=== PATIENT | female | born 1925 | race Caucasian/White ===

== ENCOUNTER 2016-06-20 09:18 | Inpatient (IN) | payer OTHER, MEDICARE ==
[~2016-06-20] VITALS: Ht 165.1 cm; Wt 46.4 kg
[2016-06-20] VITALS (8 sets, daily range): BP systolic 121–148; BP diastolic 59–75; PULSE 74–102; RESP 16–18; TEMP 97.8–98.7; O2SAT 94–98
[~2016-06-20 09:18] MED LIST: AMLO5 PO; D31000TA PO
[2016-06-20] MEDS ORDERED: SODIUM CHLORIDE 0.9% FLUSH 5 ML FLUSH IVF PRN (09:45)
[2016-06-20 10:41] LABS: AUTOMATED NEUTROPHIL # 7.2 TH/MM3 (1.8-7.7); BASOPHIL # 0.1 TH/MM3 (0-0.2); EOSINOPHIL # 0.3 TH/MM3 (0-0.4); EOSINOPHIL % 2.3 % (0.0-4.0); HEMATOCRIT 41.2 % (35.0-46.0); HEMO FLAGS DIFF FINAL; LYMPH % 26.4 % (9.0-44.0); MEAN CELL VOLUME 83.6 FL (80.0-100.0); MEAN CORPUSCULAR HEMOGLOBIN 27.7 PG (27.0-34.0); MEAN CORPUSCULAR HGB CONC 33.2 % (32.0-36.0); MONO % 7.5 % (0.0-8.0); NEUT % 62.8 % (16.0-70.0); PLATELET COUNT 147 TH/MM3 (150-450); RED BLOOD COUNT 4.94 MIL/MM3 (4.00-5.30); RED CELL DISTRIBUTION WIDTH 14.1 % (11.6-17.2); WHITE BLOOD COUNT 11.4 TH/MM3 (4.0-11.0)
[2016-06-20 10:59] LABS: APTT (PATIENT) 24.3 SEC (24.3-30.1); PROTHROMBIN TIME - PATIENT 11.2 SEC (9.8-11.6)
[2016-06-20 11:01] LABS: ALT (GPT) 16 U/L (10-53); ANION GAP 9 MEQ/L (5-15); AST (GOT) 15 U/L (15-37); BICARBONATE 25.1 MEQ/L (21.0-32.0); BLOOD UREA NITROGEN 28 MG/DL (7-18); CHLORIDE 105 MEQ/L (98-107); GLOMERULAR FILTRATION RATE 22 ML/MIN (>89); MAGNESIUM 2.3 MG/DL (1.5-2.5); POTASSIUM 3.8 MEQ/L (3.5-5.1); SODIUM (NA) 139 MEQ/L (136-145)
[2016-06-20 11:04] LABS: ALKALINE PHOSPHATASE 87 U/L (45-117); TOTAL BILIRUBIN ADULT 0.8 MG/DL (0.2-1.0)
--- NOTE | 2016-06-20 11:30 | PD ---
HPI Chief Complaint: Fall Time Seen by Provider: 09:39 Travel History International Travel<30 days: No Contact w/Intl Traveler<30days: No Traveled to known affect area: No History of Present Illness HPI This is an 89-year-old female who was brought in by her because she's been increasingly weak and falling. This morning she was going to the bathroom when she told her thought she was in the pass out and he went to help her to the ground. He's been increasingly weaker and is currently using a cane. He's been trying to help her but he feels physically incapable to. They said [facility] came to the house earlier this week in the setting of a fall. The patient did not sustain an injury or hit her head but her doesn't feel safe with her at home anymore. He says that when his children were in town last they're looking into assisted living facilities but he thinks they probably wouldn't accept her and she probably needs a mcfp. PFSH Past Medical History Cancer: Yes (SKIN CANCER) Cardiovascular Problems: Yes High Cholesterol: Yes Diminished Hearing: Yes ([place]) Endocrine: No Genitourinary: Yes Hypertension: Yes Immune Disorder: No Musculoskeletal: No Neurologic: No Psychiatric: No Reproductive: No Respiratory: Yes Influenza Vaccination: Yes Menopausal: Yes Past Surgical History Abdominal Surgery: Yes Appendectomy: Yes Cardiac Surgery: No Cholecystectomy: Yes Ear Surgery: No Endocrine Surgery: Yes Genitourinary Surgery: Yes (BREAST LUMP REMOVED) Gynecologic Surgery: Yes Hysterectomy: Yes Oral Surgery: No Thoracic Surgery: No Tonsillectomy: Yes Other Surgery: Yes (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) Social History Alcohol Use: No Tobacco Use: No Substance Use: No Allergies-Medications (Allergen,Severity, Reaction): Coded Allergies: Darvon (Verified Allergy, Unknown, 06/20/16) Reported Meds & Prescriptions Reported Meds & Active Scripts Active Reported Vitamin D3 (Cholecalciferol) 1,000 Unit Tab 1,000 Units PO DAILY Amlodipine (Amlodipine Besylate) 10 Mg Tab 10 Mg PO DAILY Review of Systems ROS Limitations: Poor Historian Physical Exam Narrative GENERAL: Frail elderly female in no acute distress. SKIN: Dry with skin tenting.. Erythema and some breaks in the skin of the left lower extremity with some warmth. HEAD: Atraumatic. Normocephalic. EYES: Pupils equal and round. No injection or drainage. ENT: Dry mucous membranes. NECK: Trachea midline. CARDIOVASCULAR: Regular rate and rhythm. Harsh systolic murmur appreciated over the right upper sternal border. RESPIRATORY: Clear to auscultation. Breath sounds equal bilaterally. GASTROINTESTINAL: Abdomen soft, non-tender, nondistended. MUSCULOSKELETAL: Swelling of the left lower extremity NEUROLOGICAL: Oriented to person but not place or time. Moving all extremities. Data Data Last Documented VS Vital Signs Date Time Temp Pulse Resp B/P Pulse Ox O2 Delivery O2 Flow Rate FiO2 06/20/16 09:54 74 18 140/75 97 Room Air 06/20/16 09:37 98.7 Orders Electrocardiogram (06/20/16 09:43) Complete Blood Count With Diff (06/20/16 09:43) Comprehensive Metabolic Panel (06/20/16 09:43) Magnesium (Mg) (06/20/16 09:43) Prothrombin Time / Inr (Pt) (06/20/16 09:43) Act Partial Throm Time (Ptt) (06/20/16 09:43) Troponin I (06/20/16 09:43) Ecg Monitoring (06/20/16 09:43) Bilateral Bp Monitoring (06/20/16 09:43) Iv Access Insert/Monitor (06/20/16 09:43) Oximetry (06/20/16 09:43) Oxygen Administration (06/20/16 09:43) Sodium Chloride 0.9% Flush (Ns Flush) (06/20/16 09:45) Urinalysis - C+S If Indicated (06/20/16 09:43) Us Leg Venous Doppler (06/20/16 ) Diet Heart Healthy (06/20/16 Lunch) Vital Signs (Adult) IVAN.Q4H (06/20/16 12:16) Acetaminophen (Tylenol) (06/20/16 12:30) Ondansetron Inj (Zofran Inj) (06/20/16 12:30) Amlodipine (Norvasc) (06/21/16 09:00) Case Management Consult (06/20/16 ) Admit Order (Ed Use Only) (06/20/16 12:20) Heparin Infusion IVAN.Q1H (06/20/16 12:20) Heparin-D5w Inj (Heparin-D5w Inj) (06/20/16 12:30) Act Partial Throm Time (Ptt) (06/20/16 12:20) Cbc No Diff, Includes Plts (06/20/16 12:20) Cbc No Diff, Includes Plts (06/23/16 06:00) Act Partial Throm Time (Ptt) (06/20/16 19:20) Occult Blood (Hemoccult) Stool (06/20/16 12:20) Labs Laboratory Tests Test 06/20/16 06/20/16 10:15 12:00 White Blood Count 11.4 TH/MM3 Red Blood Count 4.94 MIL/MM3 Hemoglobin 13.7 GM/DL Hematocrit 41.2 % Mean Corpuscular Volume 83.6 FL Mean Corpuscular Hemoglobin 27.7 PG Mean Corpuscular Hemoglobin 33.2 % Concent Red Cell Distribution Width 14.1 % Platelet Count 147 TH/MM3 Mean Platelet Volume 9.1 FL Neutrophils (%) (Auto) 62.8 % Lymphocytes (%) (Auto) 26.4 % Monocytes (%) (Auto) 7.5 % Eosinophils (%) (Auto) 2.3 % Basophils (%) (Auto) 1.0 % Neutrophils # (Auto) 7.2 TH/MM3 Lymphocytes # (Auto) 3.0 TH/MM3 Monocytes # (Auto) 0.9 TH/MM3 Eosinophils # (Auto) 0.3 TH/MM3 Basophils # (Auto) 0.1 TH/MM3 CBC Comment DIFF FINAL Differential Comment Prothrombin Time 11.2 SEC Prothromb Time International 1.0 RATIO Ratio Activated Partial 24.3 SEC Thromboplast Time Sodium Level 139 MEQ/L Potassium Level 3.8 MEQ/L Chloride Level 105 MEQ/L Carbon Dioxide Level 25.1 MEQ/L Anion Gap 9 MEQ/L Blood Urea Nitrogen 28 MG/DL Creatinine 2.13 MG/DL Estimat Glomerular Filtration 22 ML/MIN Rate Random Glucose 102 MG/DL Calcium Level 9.5 MG/DL Magnesium Level 2.3 MG/DL Total Bilirubin 0.8 MG/DL Aspartate Amino Transf 15 U/L (AST/SGOT) Alanine Aminotransferase 16 U/L (ALT/SGPT) Alkaline Phosphatase 87 U/L Troponin I LESS THAN 0.02 NG/ML Total Protein 7.9 GM/DL Albumin 4.0 GM/DL Urine Color STRAW Urine Turbidity CLEAR Urine pH 5.0 Urine Specific [place] 1.017 Urine Protein TRACE mg/dL Urine Glucose (UA) 100 mg/dL Urine Ketones NEG mg/dL Urine Occult Blood SMALL Urine Nitrite NEG Urine Bilirubin NEGATIVE Urine Urobilinogen 0.2 MG/DL Urine Leukocyte Esterase NEGATIVE Urine WBC 0-2 /hpf Microscopic Urinalysis Comment CULT NOT INDICATED MDM Medical Decision Making Medical Screen Exam Complete: Yes Emergency Medical Condition: Yes Interpretation(s) Afebrile, mild leukocytosis Creatinine is 2 Troponin is normal Ultrasound demonstrates extensive occlusive thrombus in the left leg Differential Diagnosis Urinary tract infection, electrolyte abnormality, anemia, DVT Narrative Course This is an 89-year-old female who presents to the emergency department with increasing weakness and more frequent falls. Her reports that he simply can't take care of her anymore. On physical exam she has obvious swelling on the left lower extremity. She's a history of DVT. She is placed in a monitor and an IV was established. Labs were obtained which were reassuring. Ultrasound demonstrates an extensive occlusive thrombus. I spoke to the hospitalist. We agreed the patient would benefit from IV heparin and hematology consultation. She'll likely require rehab or mcfp placement. Physician Communication Physician Communication Discussed with Dr. Hill and Dr. Silva Diagnosis Primary Impression: Femoral neck fracture Qualified Code: S72.002A - Closed fracture of neck of left femur, initial encounter Admitting Information Admitting Physician Requests: Admit Josefa Ambriz MD Jun 20, 2016 11:30
[2016-06-20] MEDS ORDERED: VITA100018 PO (11:32)
[2016-06-20] MEDS ORDERED: AMLO10TA2 PO (11:32)
--- NOTE | 2016-06-20 11:50 | RADRPT ---
EXAM DATE/TIME: 06/20/2016 11:04 [place] COMPARISON: No previous studies available for comparison. EXTERNAL COMPARISON : [facility], US LEG, LEFT VENOUS DOPPLER, October 17, 2011 INDICATIONS : Left leg pain. MEDICAL HISTORY : Hypercholesterolemia. Hypertension. Dyspnea. Renal disease. Melanoma. SURGICAL HISTORY : Tonsillectomy. Appendectomy. Cholecystectomy. Breast lumpectomy. Melanoma removed from right ankle. ENCOUNTER: Subsequent ACUITY: 1 week PAIN SCORE: 0/10 LOCATION: Left leg. TECHNIQUE: Venous ultrasound of the leg was performed from the inguinal ligament to the proximal calf. Real-cheli e, color Doppler and spectral tracing, compression and augmentation techniques were used. FINDINGS: There is occlusive thrombus in the iliac vein extending into the popliteal vein. There is some flow i n the popliteal vein. CONCLUSION: Extensive occlusive thrombosis of the left leg. Tavon Vela MD on June 20, 2016 at 11:48 Board Certified Radiologist. This report was verified electronically.
[2016-06-20 12:15] LABS: BLOOD, URINE SMALL (NEG); GLUCOSE,URINE 100 mg/dL (NEG); KETONE, URINE NEG (NEG); NITRITE,URINE NEG (NEG)
[2016-06-20 12:16] LABS: COMMENT (UR) CULT NOT INDICATED; CULTURE IF INDICATED CULT NOT INDICATED; URINE COLOR STRAW (YELLW/STRAW); WBC, URINE 0-2 /hpf (0-5)
[2016-06-20] MEDS ORDERED: ACETAMINOPHEN 325 MG TAB PO PRN (12:30)
[2016-06-20] MEDS ORDERED: ONDANSETRON HCL 4 MG/2 ML VIAL IV PUSH PRN (12:30)
--- NOTE | 2016-06-20 13:00 | HHI.HP ---
[facility] Service [facility] [place] [facility] Primary Care Physician Luz Marina Valencia MD Admission Diagnosis dvt Diagnoses: (1) DVT (deep venous thrombosis) Diagnosis: Principal Chief Complaint: generalized weakness Travel History International Travel<30 Days: No Contact w/Intl Traveler <30 Da: No Traveled to Known Affected Are: No History of Present Illness patient is a 89 y/o female with history of DVT, dementia and hypertension who was brought to ER with generalized weakness. the patient is not a good historian and most of the information was obtained from the at the bedside. he says that she normally walks with a walker but it seems that recently she's been weaker and is ' slow' with using her walker. she didn't have any recent fall. he says that they were thinking about sending her to [facility] but he's concerned since he doesn't think that she'll be able to take care of herself. at the time of my evaluation she was resting comfortably with no distress. denies any pain. Review of Systems ROS Limitations: Poor Historian Past Family Social History Past Medical History dementia hypertension DVT Past Surgical History cholecystectomy Reported Medications norvasc vitamin D Allergies: Coded Allergies: Darvon (Verified Allergy, Unknown, 06/20/16) Active Ordered Medications Current Medications IV Flush (NS Flush) 2 ml UNSCH PRN IVF FLUSH AFTER USING IV ACCESS; Start at 09:45 Acetaminophen (Tylenol) 650 mg Q4H PRN PO FEVER/ PAIN 1-5; Start 06/20/16 at 12: 30 Ondansetron HCl (Zofran Inj) 4 mg Q8H PRN IV PUSH NAUSEA; Start 06/20/16 at 12: 30 Amlodipine Besylate 10 mg 10 mg DAILY PO ; Start 06/21/16 at 09:00 Heparin Sodium/ Dextrose (Heparin-D5W Inj) 250 ml @ 0 mls/hr TITRATE IV ; Start 06/20/16 at 12:30 Social History lives at home . no smoking or drinking. Physical Exam Vital Signs Vital Signs Date Time Temp Pulse Resp B/P Pulse Ox O2 Delivery O2 Flow Rate FiO2 06/20/16 09:54 74 18 140/75 97 Room Air 06/20/16 09:45 97 Room Air 06/20/16 09:37 98.7 84 18 140/75 98 Physical Exam GENERAL: elderly female, in no apparent distress. SKIN: erythema over the left leg HEAD: Atraumatic. Normocephalic. No temporal or scalp tenderness. EYES: Pupils equal round and reactive. Extraocular motions intact. No scleral icterus. No injection or drainage. ENT: Nose without bleeding, purulent drainage or septal hematoma. Throat without erythema, tonsillar hypertrophy or exudate. Uvula midline. Airway patent. NECK: Trachea midline. No JVD or lymphadenopathy. Supple, nontender, no meningeal signs. CARDIOVASCULAR: Regular rate and rhythm without murmurs, gallops, or rubs. RESPIRATORY: Clear to auscultation. Breath sounds equal bilaterally. No wheezes , rales, or rhonchi. GASTROINTESTINAL: Abdomen soft, non-tender, nondistended. No hepato-splenomegaly , or palpable masses. No guarding. MUSCULOSKELETAL: swollen left leg with warmth and erythema NEUROLOGICAL: Awake and alert. Cranial nerves II through XII intact. Motor and sensory grossly within normal limits. Five out of 5 muscle strength in all muscle groups. Normal speech. Laboratory Laboratory Tests Test 06/20/16 06/20/16 10:15 12:00 White Blood Count 11.4 Red Blood Count 4.94 Hemoglobin 13.7 Hematocrit 41.2 Mean Corpuscular Volume 83.6 Mean Corpuscular Hemoglobin 27.7 Mean Corpuscular Hemoglobin 33.2 Concent Red Cell Distribution Width 14.1 Platelet Count 147 Mean Platelet Volume 9.1 Neutrophils (%) (Auto) 62.8 Lymphocytes (%) (Auto) 26.4 Monocytes (%) (Auto) 7.5 Eosinophils (%) (Auto) 2.3 Basophils (%) (Auto) 1.0 Neutrophils # (Auto) 7.2 Lymphocytes # (Auto) 3.0 Monocytes # (Auto) 0.9 Eosinophils # (Auto) 0.3 Basophils # (Auto) 0.1 CBC Comment DIFF FINAL Differential Comment Prothrombin Time 11.2 Prothromb Time International 1.0 Ratio Activated Partial 24.3 Thromboplast Time Sodium Level 139 Potassium Level 3.8 Chloride Level 105 Carbon Dioxide Level 25.1 Anion Gap 9 Blood Urea Nitrogen 28 Creatinine 2.13 Estimat Glomerular Filtration 22 Rate Random Glucose 102 Calcium Level 9.5 Magnesium Level 2.3 Total Bilirubin 0.8 Aspartate Amino Transf 15 (AST/SGOT) Alanine Aminotransferase 16 (ALT/SGPT) Alkaline Phosphatase 87 Troponin I LESS THAN 0.02 Total Protein 7.9 Albumin 4.0 Urine Color STRAW Urine Turbidity CLEAR Urine pH 5.0 Urine Specific [place] 1.017 Urine Protein TRACE Urine Glucose (UA) 100 Urine Ketones NEG Urine Occult Blood SMALL Urine Nitrite NEG Urine Bilirubin NEGATIVE Urine Urobilinogen 0.2 Urine Leukocyte Esterase NEGATIVE Urine WBC 0-2 Microscopic Urinalysis Comment CULT NOT INDICATED Result Diagram: 06/20/16 1015 06/20/16 1015 Imaging Last Impressions Lower Extremity Ultrasound 06/20/16 0000 Signed Impressions: Service Date/Time: June 11:04 - CONCLUSION: Extensive occlusive thrombosis of the left leg. Tavon Vela MD Assessment and Plan Assessment and Plan A/P - DVT of the left lower extremity with history of DVT in the past started on heparin drip- will start coumadin and consult pharmacy for coumadin dosing -generalized weakness- consult PT -hypertension; resume home meds -chronic renal insufficiency/ dementia- f/u as outpatient -DNR status per my discussion with the -case management for dc planning to SNF ( this was d/w the ). Discussed Condition With ER physician, the patient and her . Physician Certification 2 Midnight Certification Type: Admission for Inpatient Services Order for Inpatient Services The services are ordered in accordance with Medicare regulations or non- Medicare payer requirements, as applicable. In the case of services not specified as inpatient-only, they are appropriately provided as inpatient services in accordance with the 2-midnight benchmark. Estimated LOS (days): 3 days is the estimated time the patient will need to remain in the hospital, assuming treatment plan goals are met and no additional complications. Post-Hospital Plan: SNF Problem Qualifiers (1) DVT (deep venous thrombosis): Ivet Nixon MD Jun 20, 2016 13:00
[2016-06-20] MEDS: HEPARIN-D5W INJ 250 ML IV SCH (14:56)
[2016-06-20] MEDS: WARFARIN SOD 5 MG TAB PO SCH (18:26)
[2016-06-20 21:50] LABS: APTT (PATIENT) 61.4 SEC (24.3-30.1)
[2016-06-20] MEDS: diphenhydrAMINE HCL 25 MG CAP PO PRN (22:23)
[2016-06-21 04:21] VITALS: BP 134/63; PULSE 71; RESP 17; TEMP 97.3; O2SAT 97
[2016-06-21 05:47] LABS: INTERNATIONAL NORMALIZED RATIO 1.1 RATIO; PROTHROMBIN TIME - PATIENT 12.2 SEC (9.8-11.6)
[2016-06-21 05:52] LABS: APTT (PATIENT) 111.5 SEC (24.3-30.1)
--- NOTE | 2016-06-21 06:46 | EKG ---
Date Performed: 06/20/2016 Time Performed: 10:12:44 PTAGE: 89 years EKG: Sinus rhythm POSSIBLE LEFT ATRIAL ENLARGEMENT NONSPECIFIC T-WAVE ABNORMALITY ABNORMAL ECG PREVIOUS TRACING : 10/29/2014 11.24 Compared to prior tracing no significant change DOCTOR: Medardo Bruce Interpretating Date/Time 06/21/2016 06:43:31
[2016-06-21 08:00] VITALS: BP 137/55; PULSE 75; RESP 17; TEMP 97.7; O2SAT 97
--- NOTE | 2016-06-21 08:13 | HHI.PR ---
Subjective Remarks resting comfortably with no distress. looks comfortable. no fever. Objective Vitals Vital Signs Date Time Temp Pulse Resp B/P Pulse Ox O2 Delivery O2 Flow Rate FiO2 06/21/16 04:21 97.3 71 17 134/63 97 06/20/16 23:15 97.8 97 18 129/61 94 06/20/16 21:26 97.9 102 18 148/68 97 06/20/16 21:05 74 20 142/64 95 06/20/16 19:34 95 18 128/63 97 Room Air 06/20/16 18:28 79 18 121/59 98 06/20/16 14:05 76 16 125/62 98 Room Air 06/20/16 09:54 74 18 140/75 97 Room Air 06/20/16 09:45 97 Room Air 06/20/16 09:37 98.7 84 18 140/75 98 I/O 06/20/16 06/20/16 06/20/16 06/21/16 06/21/16 06/21/16 07:00 15:00 23:00 07:00 15:00 23:00 Intake Total 182 ml 312 ml Balance 182 ml 312 ml Intake Oral 120 ml 240 ml IV Total 62 ml 72 ml # Voids 2 # Bowel Movements 0 Result Diagram: 06/20/16 1015 06/20/16 1015 Imaging Last Impressions Lower Extremity Ultrasound 06/20/16 0000 Signed Impressions: Service Date/Time: June 11:04 - CONCLUSION: Extensive occlusive thrombosis of the left leg. Tavon Vela MD Objective Remarks GENERAL: This is a well-nourished, well-developed patient, in no apparent distress. CARDIOVASCULAR: Regular rate and regular rhythm without murmurs, gallops, or rubs. RESPIRATORY: Clear to auscultation. Breath sounds equal bilaterally. No wheezes , rales, or rhonchi. GASTROINTESTINAL: Abdomen soft, non-tender, nondistended. Normal, active bowel sounds MUSCULOSKELETAL: erythema and edema of the left leg NEURO: awake and alert Procedures none Medications and IVs Current Medications IV Flush (NS Flush) 2 ml UNSCH PRN IVF FLUSH AFTER USING IV ACCESS; Start at 09:45 Acetaminophen (Tylenol) 650 mg Q4H PRN PO FEVER/ PAIN 1-5; Start 06/20/16 at 12: 30 Ondansetron HCl (Zofran Inj) 4 mg Q8H PRN IV PUSH NAUSEA; Start 06/20/16 at 12: 30 Amlodipine Besylate 10 mg 10 mg DAILY PO ; Start 06/21/16 at 09:00 Heparin Sodium/ Dextrose (Heparin-D5W Inj) 250 ml @ 0 mls/hr TITRATE IV Last administered on 06/20/16 14:56; Start 06/20/16 at 12:30 Warfarin Sodium 5 mg 5 mg DAILY@1600 PO Last administered on 06/20/16 18:26; Start 06/20/16 at 16:00 Pharmacy Profile Note (Coumadin Consult Pharmacy) 0 ml @ 0 mls/hr UNSCH OTHER ; Start 06/20/16 at 13:00 Diphenhydramine HCl (Benadryl) 25 mg HS PRN PO INSOMNIA Last administered on 22:23; Start 06/20/16 at 13:00 Patient Medication Teaching (Coumadin Booklet) 1 ONCE ONCE XX Last administered on 06/20/16 16:00; Start 06/20/16 at 16:00; Stop 06/20/16 at 16:01; Status DC A/P Assessment and Plan A/P - DVT of the left lower extremity with history of DVT in the past started on heparin drip- will start coumadin and consult pharmacy for coumadin dosing dc heparin when INR >2. of note this was d/w the patient's and he's willing to proceed with coumadin since the patient was on coumadin therapy in the past. -generalized weakness- consulted PT -hypertension; resumed home meds -chronic renal insufficiency/ dementia- f/u as outpatient -DNR status per my discussion with the -case management for dc planning to SNF ( this was previously d/w the ). Discharge Planning dc planning to SNF- when INR is therapeutic. Ivet Nixon MD Jun 21, 2016 08:13
[2016-06-21 10:03] LABS: APTT (PATIENT) 68.9 SEC (24.3-30.1)
[2016-06-21 12:00] VITALS: BP 131/52; PULSE 74; RESP 18; TEMP 97.3; O2SAT 95
[2016-06-21 16:00] VITALS: BP 139/56; PULSE 78; RESP 18; TEMP 97.9; O2SAT 97
[2016-06-21] MEDS: WARFARIN SOD 5 MG TAB PO SCH (16:16)
[2016-06-21 18:16] LABS: APTT (PATIENT) 50.9 SEC (24.3-30.1)
[2016-06-21] MEDS: diphenhydrAMINE HCL 25 MG CAP PO PRN (19:49)
[2016-06-21 20:00] VITALS: BP 144/61; PULSE 81; RESP 18; TEMP 98.1; O2SAT 97
[2016-06-22 00:24] VITALS: BP 122/51; PULSE 72; RESP 16; TEMP 98; O2SAT 98
[2016-06-22 02:10] LABS: APTT (PATIENT) 57.6 SEC (24.3-30.1)
[2016-06-22] MEDS: HEPARIN-D5W INJ 250 ML IV SCH (02:22)
[2016-06-22 07:07] LABS: INTERNATIONAL NORMALIZED RATIO 1.5 RATIO; PROTHROMBIN TIME - PATIENT 16.4 SEC (9.8-11.6)
[2016-06-22 07:21] LABS: BICARBONATE 24.6 MEQ/L (21.0-32.0); POTASSIUM 3.8 MEQ/L (3.5-5.1)
[2016-06-22 08:14] VITALS: BP 131/64; PULSE 72; RESP 16; TEMP 97; O2SAT 96
--- NOTE | 2016-06-22 10:43 | HHI.PR ---
Subjective Remarks in no acute distress. has some pain to the left leg. no other complaints. Objective Vitals Vital Signs Date Time Temp Pulse Resp B/P Pulse Ox O2 Delivery O2 Flow Rate FiO2 06/22/16 08:14 97.0 72 16 131/64 96 06/22/16 00:24 98.0 72 16 122/51 98 06/21/16 20:00 98.1 81 18 144/61 97 06/21/16 16:00 97.9 78 18 139/56 97 06/21/16 12:00 97.3 74 18 131/52 95 I/O 06/21/16 06/21/16 06/21/16 06/22/16 06/22/16 06/22/16 07:00 15:00 23:00 07:00 15:00 23:00 Intake Total 312 ml 908 ml 288 ml Balance 312 ml 908 ml 288 ml Intake Oral 240 ml 860 ml 240 ml IV Total 72 ml 48 ml 48 ml # Voids 2 2 2 # Bowel Movements 0 0 0 Result Diagram: 06/20/16 1015 06/22/16 0613 Imaging Last Impressions Lower Extremity Ultrasound 06/20/16 0000 Signed Impressions: Service Date/Time: June 11:04 - CONCLUSION: Extensive occlusive thrombosis of the left leg. Tavon Vela MD Objective Remarks GENERAL: This is a well-nourished, well-developed patient, in no apparent distress. CARDIOVASCULAR: Regular rate and regular rhythm without murmurs, gallops, or rubs. RESPIRATORY: Clear to auscultation. Breath sounds equal bilaterally. No wheezes , rales, or rhonchi. GASTROINTESTINAL: Abdomen soft, non-tender, nondistended. Normal, active bowel sounds MUSCULOSKELETAL: erythema and edema of the left leg NEURO: awake and alert Procedures none Medications and IVs Current Medications IV Flush (NS Flush) 2 ml UNSCH PRN IVF FLUSH AFTER USING IV ACCESS; Start at 09:45 Acetaminophen (Tylenol) 650 mg Q4H PRN PO FEVER/ PAIN 1-5; Start 06/20/16 at 12: 30 Ondansetron HCl (Zofran Inj) 4 mg Q8H PRN IV PUSH NAUSEA; Start 06/20/16 at 12: 30 Amlodipine Besylate 10 mg 10 mg DAILY PO Last administered on 06/22/16 09:32; Start 06/21/16 at 09:00 Heparin Sodium/ Dextrose (Heparin-D5W Inj) 250 ml @ 0 mls/hr TITRATE IV Last administered on 06/22/16 02:22; Start 06/20/16 at 12:30 Warfarin Sodium 5 mg 5 mg DAILY@1600 PO Last administered on 06/21/16 16:16; Start 06/20/16 at 16:00 Pharmacy Profile Note (Coumadin Consult Pharmacy) 0 ml @ 0 mls/hr UNSCH OTHER ; Start 06/20/16 at 13:00 Diphenhydramine HCl (Benadryl) 25 mg HS PRN PO INSOMNIA Last administered on 19:49; Start 06/20/16 at 13:00 Patient Medication Teaching (Coumadin Booklet) 1 ONCE ONCE XX Last administered on 06/20/16 16:00; Start 06/20/16 at 16:00; Stop 06/20/16 at 16:01; Status DC A/P Assessment and Plan A/P - DVT of the left lower extremity with history of DVT in the past started on heparin drip- continue coumadin and consulted pharmacy for coumadin dosing dc heparin when INR >2. of note this was d/w the patient's and he's willing to proceed with coumadin since the patient was on coumadin therapy in the past. -generalized weakness- consulted PT -hypertension; resumed home meds -chronic renal insufficiency/ dementia-stable- f/u as outpatient -DNR status per my discussion with the -case management for dc planning to SNF ( this was previously d/w the ). Discharge Planning dc planning to SNF- when INR is therapeutic. Ivet Nixon MD Jun 22, 2016 10:43
[2016-06-22] MEDS ORDERED: ACETAMINOPHEN/HYDROcodone 325 MG/5 MG TAB PO PRN (10:45)
[2016-06-22] MEDS ORDERED: NORC5TAB PO (10:45)
[2016-06-22 12:46] VITALS: BP 130/63; PULSE 72; RESP 16; TEMP 97.9; O2SAT 94
[2016-06-22] MEDS: WARFARIN SOD 5 MG TAB PO SCH (15:45)
[2016-06-22 16:00] VITALS: BP 121/56; PULSE 74; RESP 16; TEMP 98.5; O2SAT 97
[2016-06-22 20:07] VITALS: BP 133/62; PULSE 77; RESP 16; TEMP 98.5; O2SAT 98
[2016-06-23 00:16] VITALS: BP 133/60; PULSE 69; RESP 17; TEMP 97.9; O2SAT 95
[2016-06-23 04:08] VITALS: BP 123/57; PULSE 65; RESP 16; TEMP 97.4; O2SAT 96
[2016-06-23 07:34] VITALS: BP 128/59; PULSE 68; RESP 16; TEMP 97.8; O2SAT 94
[2016-06-23 08:01] LABS: HEMATOCRIT 34.2 % (35.0-46.0); MEAN CELL VOLUME 82.8 FL (80.0-100.0); MEAN CORPUSCULAR HEMOGLOBIN 28.1 PG (27.0-34.0); MEAN CORPUSCULAR HGB CONC 33.9 % (32.0-36.0); PLATELET COUNT 164 TH/MM3 (150-450); RED BLOOD COUNT 4.13 MIL/MM3 (4.00-5.30); REVIEW FLAG FINAL; WHITE BLOOD COUNT 9.1 TH/MM3 (4.0-11.0)
[2016-06-23 08:12] LABS: INTERNATIONAL NORMALIZED RATIO 2.5 RATIO; PROTHROMBIN TIME - PATIENT 28.8 SEC (9.8-11.6)
--- NOTE | 2016-06-23 09:13 | HHI.PR ---
Subjective Remarks resting comfortably with no distress. no fever. d/w the RN and no acute issues over night. Objective Vitals Vital Signs Date Time Temp Pulse Resp B/P Pulse Ox O2 Delivery O2 Flow Rate FiO2 06/23/16 04:08 97.4 65 16 123/57 96 06/23/16 00:16 97.9 69 17 133/60 95 06/22/16 20:07 98.5 77 16 133/62 98 06/22/16 16:00 98.5 74 16 121/56 97 06/22/16 12:46 97.9 72 16 130/63 94 I/O 06/22/16 06/22/16 06/22/16 06/23/16 06/23/16 06/23/16 07:00 15:00 23:00 07:00 15:00 23:00 Intake Total 288 ml 480 ml 408 ml 288 ml Balance 288 ml 480 ml 408 ml 288 ml Intake Oral 240 ml 480 ml 360 ml 240 ml IV Total 48 ml 48 ml 48 ml # Voids 2 3 1 1 # Bowel Movements 0 0 0 Result Diagram: 06/23/16 0629 06/22/16 0613 Imaging Last Impressions Lower Extremity Ultrasound 06/20/16 0000 Signed Impressions: Service Date/Time: June 11:04 - CONCLUSION: Extensive occlusive thrombosis of the left leg. Tavon Vela MD Objective Remarks GENERAL: This is a well-nourished, well-developed patient, in no apparent distress. CARDIOVASCULAR: Regular rate and regular rhythm without murmurs, gallops, or rubs. RESPIRATORY: Clear to auscultation. Breath sounds equal bilaterally. No wheezes , rales, or rhonchi. GASTROINTESTINAL: Abdomen soft, non-tender, nondistended. Normal, active bowel sounds MUSCULOSKELETAL: erythema and edema of the left leg NEURO: awake and alert Procedures none Medications and IVs Current Medications IV Flush (NS Flush) 2 ml UNSCH PRN IVF FLUSH AFTER USING IV ACCESS; Start at 09:45 Acetaminophen (Tylenol) 650 mg Q4H PRN PO FEVER/ PAIN 1-5; Start 06/20/16 at 12: 30 Ondansetron HCl (Zofran Inj) 4 mg Q8H PRN IV PUSH NAUSEA; Start 06/20/16 at 12: 30 Amlodipine Besylate 10 mg 10 mg DAILY PO Last administered on 06/22/16 09:32; Start 06/21/16 at 09:00 Heparin Sodium/ Dextrose (Heparin-D5W Inj) 250 ml @ 0 mls/hr TITRATE IV Last administered on 06/22/16 02:22; Start 06/20/16 at 12:30 Warfarin Sodium 5 mg 5 mg DAILY@1600 PO Last administered on 06/22/16 15:45; Start 06/20/16 at 16:00 Pharmacy Profile Note (Coumadin Consult Pharmacy) 0 ml @ 0 mls/hr UNSCH OTHER ; Start 06/20/16 at 13:00 Diphenhydramine HCl (Benadryl) 25 mg HS PRN PO INSOMNIA Last administered on 19:49; Start 06/20/16 at 13:00 Patient Medication Teaching (Coumadin Booklet) 1 ONCE ONCE XX Last administered on 06/20/16 16:00; Start 06/20/16 at 16:00; Stop 06/20/16 at 16:01; Status DC Acetaminophen/ Hydrocodone Bitart ([place] 5-325 Mg) 1 tab Q6H PRN PO PAIN >5; Start 06/22/16 at 10:45 A/P Assessment and Plan A/P - DVT of the left lower extremity with history of DVT in the past INR is therpeutic- will dc heparin drip and continue coumadin. of note this was d/w the patient's and he's willing to proceed with coumadin since the patient was on coumadin therapy in the past. -generalized weakness- consulted PT -hypertension; resumed home meds -chronic renal insufficiency/ dementia-stable- f/u as outpatient -DNR status per my discussion with the -case management for dc planning to SNF ( this was previously d/w the ). Discharge Planning dc to SNF when arrangements made. f/u; PCP. PT/INR monitoring as outpatient. Ivet Nixon MD Jun 23, 2016 09:12
[2016-06-23] MEDS ORDERED: COUM3TAB PO (09:14)
--- NOTE | 2016-06-23 09:15 | HHI.DCPOC ---
Discharge Care Plan Diagnosis: (1) DVT (deep venous thrombosis) Additional Problems blood clot in the leg. Goals to Promote Your Health * To prevent worsening of your condition and complications * To maintain your health at the optimal level Directions to Meet Your Goals Take your medications as prescribed Follow your dietary instruction Follow activity as directed Keep your appointments as scheduled Take your immunizations and boosters as scheduled If your symptoms worsen call your PCP, if no PCP go to Urgent Care Center or Emergency Room Smoking is Dangerous to Your Health. Avoid second hand smoke Call the 24-hour hour crisis hotline for domestic abuse at Ivet Nixon MD Jun 23, 2016 09:15
--- NOTE | 2016-06-23 09:15 | HHI.DS ---
Discharge Summary Admission Date Jun 20, 2016 at 12:22 Discharge Date: Jun 23, 2016 Admitting Diagnosis dvt (1) DVT (deep venous thrombosis) ICD Code: I82.409 Diagnosis: Principal Procedures none Brief History - From Admission patient is a 89 y/o female with history of DVT, dementia and hypertension who was brought to ER with generalized weakness. the patient is not a good historian and most of the information was obtained from the at the bedside. he says that she normally walks with a walker but it seems that recently she's been weaker and is ' slow' with using her walker. she didn't have any recent fall. he says that they were thinking about sending her to [facility] but he's concerned since he doesn't think that she'll be able to take care of herself. at the time of my evaluation she was resting comfortably with no distress. denies any pain. CBC/BMP: 06/23/16 0629 06/22/16 0613 Significant Findings Laboratory Tests Test 06/20/16 06/20/16 06/20/16 06/21/16 10:15 12:00 20:53 04:21 White Blood Count 11.4 TH/MM3 (4.0-11.0) Platelet Count 147 TH/MM3 (150-450) Blood Urea Nitrogen 28 MG/DL (7-18) Creatinine 2.13 MG/DL (0.50-1.00) Estimat Glomerular Filtration 22 ML/MIN (>89) Rate Troponin I LESS THAN 0.02 NG/ML (0.02-0.05) Urine Glucose (UA) 100 mg/dL (NEG) Urine Occult Blood SMALL (NEG) Activated Partial 61.4 SEC 111.5 SEC Thromboplast Time (24.3-30.1) (24.3-30.1) Prothrombin Time 12.2 SEC (9.8-11.6) Test 06/21/16 06/21/16 06/22/16 06/22/16 09:36 17:20 01:29 06:13 Activated Partial 68.9 SEC 50.9 SEC 57.6 SEC Thromboplast Time (24.3-30.1) (24.3-30.1) (24.3-30.1) Prothrombin Time 16.4 SEC (9.8-11.6) Chloride Level 108 MEQ/L (98-107) Blood Urea Nitrogen 27 MG/DL (7-18) Creatinine 1.62 MG/DL (0.50-1.00) Estimat Glomerular Filtration 30 ML/MIN (>89) Rate Calcium Level 8.3 MG/DL (8.5-10.1) Test 06/23/16 06:29 Hematocrit 34.2 % (35.0-46.0) Prothrombin Time 28.8 SEC (9.8-11.6) Imaging Last Impressions Lower Extremity Ultrasound 06/20/16 0000 Signed Impressions: Service Date/Time: June 11:04 - CONCLUSION: Extensive occlusive thrombosis of the left leg. Tavon Vela MD PE at Discharge GENERAL: This is a well-nourished, well-developed patient, in no apparent distress. CARDIOVASCULAR: Regular rate and regular rhythm without murmurs, gallops, or rubs. RESPIRATORY: Clear to auscultation. Breath sounds equal bilaterally. No wheezes , rales, or rhonchi. GASTROINTESTINAL: Abdomen soft, non-tender, nondistended. Normal, active bowel sounds MUSCULOSKELETAL: erythema and edema of the left leg NEURO: awake and alert Hospital Course - DVT of the left lower extremity with history of DVT in the past INR is therpeutic- will dc heparin drip and continue coumadin. of note this was d/w the patient's and he's willing to proceed with coumadin since the patient was on coumadin therapy in the past. -generalized weakness- consulted PT -hypertension; resumed home meds -chronic renal insufficiency/ dementia-stable- f/u as outpatient -DNR status per my discussion with the -case management for dc planning to SNF ( this was previously d/w the ). Pt Condition on Discharge: Fair Discharge Disposition: Discharge to SNF Discharge Time: <= 30 minutes Discharge Instructions DIET: Follow Instructions for: Heart Healthy Diet Activities you can perform: Regular-No Restrictions Follow up Referrals: PCP Follow-up New Orders: PT/INR New Medications: Hydrocodone-Acetaminophen ([place]) 5-325 mg Tab 1 TAB PO Q6H PRN PAIN #15 Ref 0 TAB Warfarin (Coumadin) 3 Mg Tab 3 MG PO DAILY Prevent Blood Clot #30 Ref 0 TAB Continued Medications: Amlodipine (Amlodipine) 10 Mg Tab 10 MG PO DAILY Blood Pressure Management #30 Ref 0 TAB Cholecalciferol (Vitamin D3) 1,000 Unit Tab 1000 UNITS PO DAILY Nutritional Supplement #1 Ref 0 BOTTLE Ivet Nixon MD Jun 23, 2016 09:15
[2016-06-23 12:30] VITALS: BP 145/64; PULSE 73; RESP 16; TEMP 98.4; O2SAT 97
== END 2016-06-23 15:05 | DRG 301 ==
LOC: NEPC 09:18 → NEDA 12:22 → NEDH 19:44 → N06A 21:25
PROVIDERS: ADMIT Internal Medicine; ATTEND Internal Medicine
DX: I82.402 Acute embolism and thrombosis of unspecified deep veins of left lower extremity (principal); F03.90 Unspecified dementia, unspecified severity, without behavioral disturbance, psychotic disturbance, mood disturbance, and anxiety; I12.9 Hypertensive chronic kidney disease with stage 1 through stage 4 chronic kidney disease, or unspecified chronic kidney disease; R53.1 Weakness; Z79.01 Long term (current) use of anticoagulants; N18.9 Chronic kidney disease, unspecified; E78.00 Pure hypercholesterolemia, unspecified; H91.90 Unspecified hearing loss, unspecified ear; R29.6 Repeated falls; Z66 Do not resuscitate; Z86.718 Personal history of other venous thrombosis and embolism; Z85.820 Personal history of malignant melanoma of skin
CPT/HCPCS: 80048; 80053; 81001; 83735; 84484; 85025; 85027; 85610; 85730; 93005; 93971; J1644

== ENCOUNTER 2016-12-05 22:49 | Emergency (ER) | payer MEDICARE, OTHER ==
[~2016-12-05] VITALS: Ht 165.1 cm; Wt 47.0 kg
[~2016-12-05 22:49] MED LIST changes: +AMLO10TA2 PO; -AMLO5 PO; +COUM3TAB PO; -D31000TA PO; +NORC5TAB PO; +VITA100018 PO
--- NOTE | 2016-12-05 22:59 | PD ---
HPI Chief Complaint: Fall Time Seen by Provider: 22:53 Travel History International Travel<30 days: No Contact w/Intl Traveler<30days: No History of Present Illness HPI The patient is 89 years old. She had a slip and fall from her wheelchair at her [facility]. She complains of left elbow pain as well as pain in the occipital scalp. EMS notes about a 2 cm hematoma there. Patient started aspirin today. Patient has a history of Alzheimer's and her baseline GCS is known to be 14 which has been observed upon her arrival. PFSH Past Medical History Cancer: Yes (SKIN CANCER) Cardiovascular Problems: Yes High Cholesterol: Yes Diminished Hearing: Yes ([place]) Endocrine: No Genitourinary: Yes Hypertension: Yes Immune Disorder: No Musculoskeletal: No Neurologic: No Psychiatric: No Reproductive: No Respiratory: Yes Menopausal: Yes Past Surgical History Abdominal Surgery: Yes Appendectomy: Yes Cardiac Surgery: No Cholecystectomy: Yes Ear Surgery: No Endocrine Surgery: Yes Genitourinary Surgery: Yes (BREAST LUMP REMOVED) Gynecologic Surgery: Yes Hysterectomy: Yes Oral Surgery: No Thoracic Surgery: No Tonsillectomy: Yes Other Surgery: Yes (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) Social History Alcohol Use: No Tobacco Use: No Substance Use: No Allergies-Medications (Allergen,Severity, Reaction): Coded Allergies: Darvon (Verified Allergy, Unknown, 12/05/16) Reported Meds & Prescriptions Reported Meds & Active Scripts Active [place] (Hydrocodone-Acetaminophen) 5-325 mg Tab 1 Tab PO Q6H PRN Reported Dexamethasone 4 Mg Tab 4 Mg PO BID Aspirin 81 (Aspirin) 81 Mg Tabdr 81 Mg PO DAILY Mirtazapine 7.5 Mg Tab 7.5 Mg PO HS Aricept (Donepezil HCl) 10 Mg Tablet 10 Mg PO HS Docusate Sodium 100 Mg Cap 100 Mg PO HS PRN Senexon (Sennosides) 8.6 Mg Tab 2 Tab PO HS Calcium (Calcium Carbonate) 600 Mg Tab 600 Mg PO BID Vitamin D3 (Cholecalciferol) 1,000 Unit Tab 1,000 Units PO DAILY Amlodipine (Amlodipine Besylate) 10 Mg Tab 10 Mg PO DAILY Review of Systems Except as stated in HPI: all other systems reviewed are Neg Physical Exam Narrative GENERAL: 8, speaking sentences 11-year-old female frail SKIN: Focused skin assessment warm/dry. HEAD: Atraumatic. Normocephalic. Approximately 3 cm cephalohematoma occipital scalp. EYES: Pupils equal and round. No scleral icterus. No injection or drainage. ENT: No nasal bleeding or discharge. Mucous membranes pink and moist. NECK: Trachea midline. No JVD. CARDIOVASCULAR: Regular rate and rhythm. No murmur appreciated. RESPIRATORY: No accessory muscle use. Clear to auscultation. Breath sounds equal bilaterally. GASTROINTESTINAL: Abdomen soft, non-tender, nondistended. Hepatic and splenic margins not palpable. MUSCULOSKELETAL: No obvious deformities. No clubbing. No cyanosis. Contusion tenderness about the region of the olecranon on the left side. Pelvis stable. NEUROLOGICAL: Awake and alert. No obvious cranial nerve deficits. Motor grossly within normal limits. Normal speech. PSYCHIATRIC: Appropriate mood and affect; insight and judgment normal. Data Data Last Documented VS Vital Signs Date Time Temp Pulse Resp B/P Pulse Ox O2 Delivery O2 Flow Rate FiO2 12/05/16 23:04 98.7 87 18 169/[address] Brain W/O Iv Contrast(Rout) (12/05/16 22:56) Elbow, Complete (4 Vws) (12/05/16 22:56) Ice/Cold Pack (12/05/16 22:56) Pelvis, Ap Only (Routine) (12/05/16 22:56) MDM Medical Decision Making Medical Screen Exam Complete: Yes Emergency Medical Condition: Yes Medical Record Reviewed: Yes Differential Diagnosis Elbow fracture, septal hematoma, intracranial hemorrhage, femur fracture, pelvis fracture Narrative Course Elbow Xray: No evidence acute fracture Pelvis x-ray: No evidence. Fracture Head CT: No intracranial hemorrhage or skull fracture The patient is resting comfortably and feels better, is alert and in no distress. The patients results and examination findings were discussed. The repeat examination is unremarkable and benign. The history, exam, diagnostic testing, and current condition do not suggest any significant pathology to warrant further testing, continued ED treatment, admission, or surgical evaluation at this point. The vital signs have been stable. The patient does not have uncontrollable pain, intractable vomiting, or other significant symptoms. The patient's condition is stable and appropriate for discharge. The patient will pursue further outpatient evaluation with a primary care physician or other designated or consulting physician as indicated in the discharge instructions. The patient expressed understanding and was agreeable with this plan. Diagnosis Primary Impression: Fall Qualified Code: W19.XXXA - Fall, initial encounter Additional Impressions: Cephalohematoma Injury of left elbow Qualified Code: S59.902A - Injury of left elbow, initial encounter Referrals: Primary Care Physician 2 days Additional Instructions: You have a choice when it comes to health care, and we are glad that you chose [facility]. Hopefully, we have met your expectations on today's visit. You are welcome to return to [facility] at any time, as we are committed to meeting the health care needs of our community. Med/Other Pt SpecificInfo: No Change to Meds Disposition: DISCHARGE HOME Condition: Stable Jourdan Rviera MD Dec 05, 2016 22:59
[2016-12-05 23:04] VITALS: BP 169/74; PULSE 87; RESP 18; TEMP 98.7; O2SAT 98
[2016-12-05] MEDS ORDERED: ASPI-110 PO (23:09)
[2016-12-05] MEDS ORDERED: MIRT1TAB PO (23:09)
[2016-12-05] MEDS ORDERED: SENE8.6T3 PO (23:09)
[2016-12-05] MEDS ORDERED: DEXA4TAB PO (23:09)
[2016-12-05] MEDS ORDERED: ARIC10TA2 PO (23:09)
[2016-12-05] MEDS ORDERED: DOCU100C PO (23:09)
[2016-12-05] MEDS ORDERED: CALC600T25 PO (23:09)
--- NOTE | 2016-12-05 23:43 | RADRPT ---
EXAM DATE/TIME: 12/05/2016 23:16 [facility] COMPARISON: No previous studies available for comparison. INDICATIONS : Pt fell from wheelchair tonight. Pain to left elbow and hip. MEDICAL HISTORY : Hypercholesterolemia. Hypertension Skin cancer, Alzheimers SURGICAL HISTORY : Hysterectomy. Appendectomy. Cholecystectomy. Tonsillectomy ENCOUNTER: Initial ACUITY: 1 day PAIN SCORE: 8/10 LOCATION: Bilateral pelvis FINDINGS: A single frontal view of the pelvis demonstrates no evidence of fracture. The bony pelvic ring is in tact. Bony mineralization is normal. The soft tissues are intact. CONCLUSION: 1. There is no evidence of acute fracture. Mario Wagner MD on December 05, 2016 at 23:41 Board Certified Radiologist. This report was verified electronically.
--- NOTE | 2016-12-05 23:44 | RADRPT ---
EXAM DATE/TIME: 12/05/2016 23:22 [facility] COMPARISON: No previous studies available for comparison. INDICATIONS : Pt fell from wheelchair tonight. Pain to left elbow and hip. MEDICAL HISTORY : Hypercholesterolemia. Hypertension Skin cancer, Alzheimers SURGICAL HISTORY : Appendectomy. Cholecystectomy. Hysterectomy. Tonsillectomy ENCOUNTER: Initial ACUITY: 1 day PAIN SCORE: 7/10 LOCATION: Left Elbow FINDINGS: Multiple view examination of the left elbow demonstrates no soft tissue swelling, joint effusion, or fracture. The osseous structures are in normal alignment. Bony mineralization is normal. CONCLUSION: 1. There is no evidence of acute fracture. Mario Wagner MD on December 05, 2016 at 23:42 Board Certified Radiologist. This report was verified electronically.
--- NOTE | 2016-12-05 23:45 | RADRPT ---
EXAM DATE/TIME: 12/05/2016 23:24 [facility] COMPARISON: CT BRAIN W/O CONTRAST, March 02, 2016, 13:43. INDICATIONS : Trauma, fall. RADIATION DOSE: 56.35 CTDIvol (mGy) MEDICAL HISTORY : Non-responsive. SURGICAL HISTORY : Non-responsive. ENCOUNTER: Initial ACUITY: 1 day PAIN SCALE: Non-responsive LOCATION: cranial TECHNIQUE: Multiple contiguous axial images were obtained of the head. Using automated exposure control and adjustment of the mA and/or kV according to patient size, radiation dose was kept as low as reasonably achievable to obtain optimal diagnostic quality images. DICOM format image data is av ailable electronically for review and comparison. FINDINGS: Noncontrast axial head CT demonstrates the ventricles to be enlarged with a prominent sulcal pattern compatible with atrophy. No acute intracranial hemorrhage, acute cortical infarction, mass or midline shift is seen. Posterior fossa structures are unremarkable. Bone windows demonstrate no abnormality. CONCLUSION: Atrophy. No evidence of acute intracranial pathology. Mario Wagner MD on December 05, 2016 at 23:43 Board Certified Radiologist. This report was verified electronically.
[2016-12-06 03:00] VITALS: BP 134/61; PULSE 70; RESP 19; O2SAT 97
[2016-12-06 06:33] VITALS: BP 139/59; PULSE 73; RESP 18; TEMP 98.1; O2SAT 97
[2016-12-06 07:35] VITALS: BP 144/70; PULSE 68; RESP 16; O2SAT 96
== END 2016-12-06 09:12 | disposition home or self-care (01) ==
LOC: NEPE 22:49 → NEPD 12-06 09:12
DX: S06.2X9A Diffuse traumatic brain injury with loss of consciousness of unspecified duration, initial encounter (principal); S59.902A Unspecified injury of left elbow, initial encounter; W05.0XXA Fall from non-moving wheelchair, initial encounter; Y92.199 Unspecified place in other specified residential institution as the place of occurrence of the external cause
CPT/HCPCS: 70450; 72170; 73080

== ENCOUNTER 2016-12-19 23:08 | Observation (INO) | payer OTHER ==
[~2016-12-19] VITALS: Ht 157.5 cm; Wt 45.0 kg
[~2016-12-19 23:08] MED LIST changes: +ARIC10TA2 PO; +ASPI-110 PO; +CALC600T25 PO; -COUM3TAB PO; +DEXA4TAB PO; +DOCU100C PO; +MIRT1TAB PO; +SENE8.6T3 PO
[2016-12-19 23:13] VITALS: BP 170/75; PULSE 84; RESP 16; TEMP 98.6; O2SAT 95
--- NOTE | 2016-12-19 23:26 | PD ---
HPI Chief Complaint: Pain: Acute or Chronic Time Seen by Provider: 23:15 Travel History International Travel<30 days: No Contact w/Intl Traveler<30days: No Traveled to known affect area: No History of Present Illness HPI This is an 89-year-old female comes from the [facility] with complaints of right sided rib pain. The patient is a poor historian and is unable to give any further history. According to the paramedics, they report that she is supposed to use a walker however she's had multiple falls. Patient denies any head pain or neck pain. She reports pointing to her right lateral rib area. She reports weakness of her left upper and lower extremity which is not new. There are no other complaints. PFSH Past Medical History Alzheimer's Disease: Yes Cancer: Yes (SKIN CANCER) Cardiovascular Problems: Yes High Cholesterol: Yes Diminished Hearing: Yes ([place]) Endocrine: No Genitourinary: Yes Hypertension: Yes Immune Disorder: No Musculoskeletal: No Neurologic: No Psychiatric: No Reproductive: No Respiratory: Yes ?: Not Menopausal: Yes Past Surgical History Abdominal Surgery: Yes Appendectomy: Yes Cardiac Surgery: No Cholecystectomy: Yes Ear Surgery: No Endocrine Surgery: Yes Genitourinary Surgery: Yes (BREAST LUMP REMOVED) Gynecologic Surgery: Yes Hysterectomy: Yes Oral Surgery: No Thoracic Surgery: No Tonsillectomy: Yes Other Surgery: Yes (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) Social History Alcohol Use: No Tobacco Use: No Substance Use: No Allergies-Medications (Allergen,Severity, Reaction): Coded Allergies: Darvon (Verified Allergy, Unknown, 12/05/16) Reported Meds & Prescriptions Reported Meds & Active Scripts Active [place] (Hydrocodone-Acetaminophen) 5-325 mg Tab 1 Tab PO Q6H PRN Reported Dexamethasone 4 Mg Tab 4 Mg PO BID Aspirin 81 (Aspirin) 81 Mg Tabdr 81 Mg PO DAILY Mirtazapine 7.5 Mg Tab 7.5 Mg PO HS Aricept (Donepezil HCl) 10 Mg Tablet 10 Mg PO HS Docusate Sodium 100 Mg Cap 100 Mg PO HS PRN Senexon (Sennosides) 8.6 Mg Tab 2 Tab PO HS Calcium (Calcium Carbonate) 600 Mg Tab 600 Mg PO BID Vitamin D3 (Cholecalciferol) 1,000 Unit Tab 1,000 Units PO DAILY Amlodipine (Amlodipine Besylate) 10 Mg Tab 10 Mg PO DAILY Review of Systems ROS Limitations: Poor Historian Except as stated in HPI: all other systems reviewed are Neg General / Constitutional: No: Fever, Chills HENT: No: Headaches, Neck Pain Cardiovascular: No: Chest Pain or Discomfort, Palpitations Respiratory: No: Cough, Shortness of Breath Gastrointestinal: No: Nausea, Vomiting, Abdominal Pain Musculoskeletal: Positive: Pain (right lateral rib) Neurologic: Positive: Weakness (left upper and lower extremity which is not new ), No: Headache Physical Exam Narrative GENERAL: Well-nourished, well-developed patient, in no acute respiratory distress.. SKIN: Focused skin assessment warm/dry. HEAD: Normocephalic/atraumatic. EYES: No scleral icterus. No injection or drainage. NECK: Supple, trachea midline. No JVD or lymphadenopathy. CARDIOVASCULAR: Regular rate and rhythm without murmurs, gallops, or rubs. RESPIRATORY: Breath sounds equal bilaterally. No accessory muscle use. On palpation of the patient's right lateral ribs, there is tenderness to palpation. There is no obvious ecchymosis or bruising. There is no step-offs. GASTROINTESTINAL: Abdomen soft, non-tender, nondistended. No pulsatile masses. MUSCULOSKELETAL: No cyanosis, or edema. BACK: Nontender without obvious deformity. No CVA tenderness. NEUROLOGICAL: Awake and confused. Cranial nerves II through XII intact. Patient has mild contractures of her left upper extremity. Data Data Last Documented VS Vital Signs Date Time Temp Pulse Resp B/P Pulse Ox O2 Delivery O2 Flow Rate FiO2 12/20/16 04:32 83 16 127/60 94 Room Air 12/19/16 23:13 98.6 Orders Ribs, Uni (W/Exp Cxr-Min 3vw) (12/19/16 23:15) Complete Blood Count With Diff (12/20/16 00:41) Basic Metabolic Panel (Bmp) (12/20/16 00:41) Ct Abd/Pel W Iv Contrast(Rout) (12/20/16 00:41) Iodixanol 320 Inj (Rad Ct) (Visipaque 32 (12/20/16 02:03) Sodium Chlor 0.9% 1000 Ml Inj (Ns 1000 M (12/20/16 03:30) Urinalysis - C+S If Indicated (12/20/16 05:15) Labs Laboratory Tests Test 12/20/16 00:45 White Blood Count 17.8 TH/MM3 Red Blood Count 4.34 MIL/MM3 Hemoglobin 12.1 GM/DL Hematocrit 36.8 % Mean Corpuscular Volume 84.7 FL Mean Corpuscular Hemoglobin 28.0 PG Mean Corpuscular Hemoglobin 33.0 % Concent Red Cell Distribution Width 14.2 % Platelet Count 203 TH/MM3 Mean Platelet Volume 8.1 FL Neutrophils (%) (Auto) 78.4 % Lymphocytes (%) (Auto) 14.7 % Monocytes (%) (Auto) 5.5 % Eosinophils (%) (Auto) 0.7 % Basophils (%) (Auto) 0.7 % Neutrophils # (Auto) 14.0 TH/MM3 Lymphocytes # (Auto) 2.6 TH/MM3 Monocytes # (Auto) 1.0 TH/MM3 Eosinophils # (Auto) 0.1 TH/MM3 Basophils # (Auto) 0.1 TH/MM3 CBC Comment DIFF FINAL Differential Comment Sodium Level 142 MEQ/L Potassium Level 3.9 MEQ/L Chloride Level 105 MEQ/L Carbon Dioxide Level 28.4 MEQ/L Anion Gap 9 MEQ/L Blood Urea Nitrogen 49 MG/DL Creatinine 1.38 MG/DL Estimat Glomerular Filtration 36 ML/MIN Rate Random Glucose 110 MG/DL Calcium Level 8.9 MG/DL MDM Medical Decision Making Medical Screen Exam Complete: Yes Emergency Medical Condition: Yes Differential Diagnosis Right sided rib contusion versus fracture versus pneumothorax versus pneumonia Narrative Course 89-year-old female presents from the [facility] with right sided rib pain. The patient has right sided eighth ninth and 10th rib fractures. She also noted to be severely dehydrated. Given this, I will recommend bringing the patient in Friday hydration. She also could benefit from a case management consult for possible [facility] facility placement. Diagnosis Primary Impression: right eighth, ninth, 10th rib fracture. Additional Impressions: Acute kidney injury Leukocytosis Disposition: 01 DISCHARGE HOME Condition: Stable Sonido Torres MD Dec 19, 2016 23:26
[2016-12-20] VITALS (8 sets, daily range): BP systolic 127–164; BP diastolic 60–71; PULSE 60–83; RESP 16–20; TEMP 96.5–98.3; O2SAT 93–96
--- NOTE | 2016-12-20 00:05 | RADRPT ---
EXAM DATE/TIME: 12/19/2016 23:35 [facility] COMPARISON: CHEST SINGLE AP, October 29, 2014, 11:30. INDICATIONS : Patient complains of right sided rib pain after fall. MEDICAL HISTORY : None. SURGICAL HISTORY : None. ENCOUNTER: Initial ACUITY: 2 days PAIN SCORE: Non-responsive. LOCATION: Right Ribs FINDINGS: The cardiac silhouette is enlarged in transverse diameter. There is heavy calcification of the mitral valve annulus. There is no evidence of pneumothorax. There are fractures of the anterior right 89 and 10th ribs. Osseous structures are osteopenic. CONCLUSION: 1. Fracture right eighth ninth and 10th ribs Mario Wagner MD on December 20, 2016 at 0:02 Board Certified Radiologist. This report was verified electronically.
[2016-12-20 01:13] LABS: BASOPHIL # 0.1 TH/MM3 (0-0.2); BASOPHIL % 0.7 % (0.0-2.0); EOSINOPHIL # 0.1 TH/MM3 (0-0.4); EOSINOPHIL % 0.7 % (0.0-4.0); HEMATOCRIT 36.8 % (35.0-46.0); HEMO FLAGS DIFF FINAL; LYMPH % 14.7 % (9.0-44.0); LYMPHOCYTE # 2.6 TH/MM3 (1.0-4.8); MEAN CELL VOLUME 84.7 FL (80.0-100.0); MONO % 5.5 % (0.0-8.0); NEUT % 78.4 % (16.0-70.0); PLATELET COUNT 203 TH/MM3 (150-450); RED BLOOD COUNT 4.34 MIL/MM3 (4.00-5.30); RED CELL DISTRIBUTION WIDTH 14.2 % (11.6-17.2); WHITE BLOOD COUNT 17.8 TH/MM3 (4.0-11.0)
[2016-12-20 01:44] LABS: BICARBONATE 28.4 MEQ/L (21.0-32.0); POTASSIUM 3.9 MEQ/L (3.5-5.1)
[2016-12-20] MEDS ORDERED: IODIXANOL 320 MG/ML 10 ML VIAL (for Rad CT) IV ONE (02:03)
--- NOTE | 2016-12-20 02:18 | RADRPT ---
EXAM DATE/TIME: 12/20/2016 01:56 [facility] COMPARISON: No previous studies available for comparison. INDICATIONS : Right upper quadrant pain post fall. Positive rib radiographs, evaluate liver. IV CONTRAST: 50 cc Visipaque (iodixanol) IV ORAL CONTRAST: No oral contrast ingested. RADIATION DOSE: 6.64 CTDIvol (mGy) MEDICAL HISTORY : Hypertension. SURGICAL HISTORY : Hysterectomy. Cholecystectomy. ENCOUNTER: Initial ACUITY: 1 day PAIN SCALE: 9/10 LOCATION: Right upper quadrant TECHNIQUE: Volumetric scanning of the abdomen and pelvis was performed. Using automated exposure control and ad justment of the mA and/or kV according to patient size, radiation dose was kept as low as reasonably achievable to obtain optimal diagnostic quality images. DICOM format image data is available electro nically for review and comparison. FINDINGS: There is subsegmental atelectasis in the both bases. The liver and spleen are normal in size and no focal defects are identified. The gallbladder is absent. The pancreas demonstrates normal contour wit hout evidence of mass or ductal dilatation. The adrenal glands and kidneys appear normal bilaterally. No hydronephrosis or mass lesions are identified. No free fluid is identified. Examination of the pelvis demonstrates no evidence of free fluid or pelvic mass. No abnormally enlarg ed inguinal or retroperitoneal lymph nodes are present. The bladder is unremarkable. There is mild no nspecific thickening of the wall of the rectum. Multiple hemangiomas are present in the lumbar spine. CONCLUSION: 1. No evidence of acute abdominal or pelvic process. No masses are identified. 2. Bibasilar atelectasis Mario Wagner MD on December 20, 2016 at 2:13 Board Certified Radiologist. This report was verified electronically.
[2016-12-20] MEDS ORDERED: SODIUM CHLOR 0.9% 1000 ML INJ 1,000 ML IV SCH (03:30)
[2016-12-20] MEDS ORDERED: ACETAMINOPHEN/HYDROcodone 325 MG/5 MG TAB PO PRN (05:30)
[2016-12-20] MEDS ORDERED: LACTULOSE SYRUP 20 GM/30 ML CUP PO PRN (05:30)
[2016-12-20] MEDS ORDERED: BISACODYL 10 MG SUPP RECTAL PRN (05:30)
[2016-12-20] MEDS ORDERED: ACETAMINOPHEN/HYDROcodone 325 MG/7.5 MG TAB PO PRN (05:30)
[2016-12-20] MEDS ORDERED: MAGNESIUM HYDROXIDE SUSP 30 ML CUP PO PRN (05:30)
[2016-12-20] MEDS ORDERED: SODIUM CHLORIDE 0.9% FLUSH 10 ML FLUSH IV FLUSH PRN (05:30)
[2016-12-20] MEDS ORDERED: LIDOCAINE HCL 5% PATCH T-DERMAL PRN (05:30)
[2016-12-20] MEDS ORDERED: ONDANSETRON HCL 4 MG/2 ML VIAL IVP PRN (05:30)
[2016-12-20] MEDS ORDERED: SENNOSIDES 8.6 MG TAB PO PRN (05:30)
[2016-12-20] MEDS ORDERED: ACETAMINOPHEN 325 MG TAB PO PRN (05:30)
[2016-12-20] MEDS: SODIUM CHLOR 0.9% 1000 ML INJ 1,000 ML IV SCH ×2 (05:58→08:42)
[2016-12-20] MEDS ORDERED: DOCU100T9 PO (06:49)
[2016-12-20 07:10] LABS: BACTERIA, URINE MOD /hpf; BLOOD, URINE NEG (NEG); COMMENT (UR) CATH-CULTURE IND; CULTURE IF INDICATED CATH CULTURE IND; GLUCOSE,URINE NEG (NEG); KETONE, URINE NEG (NEG); PH, URINE 6.5 (5.0-8.5); SQUAMOUS EPITHELIAL CELL URINE 7 /hpf (0-5); URINE COLOR LIGHT-YELLOW (YELLW/STRAW)
[2016-12-20 07:12] LABS: NITRITE,URINE POS (NEG)
[2016-12-20] MEDS: SODIUM CHLORIDE 0.9% FLUSH 10 ML FLUSH IV FLUSH SCH ×2 (08:40→21:27)
[2016-12-20] MEDS ORDERED: DOCUSATE SODIUM 50 MG/SENNA 8.6 MG TAB PO SCH (09:00)
--- NOTE | 2016-12-20 14:53 | HHI.HP ---
HPI Service [facility] Primary Care Physician Luz Marina Valencia MD Admission Diagnosis right 8th, 9th,10th rib fracture, acute kidney injury, leukocytosis. Diagnoses: Chief Complaint: Right flank pain Travel History International Travel<30 Days: No Contact w/Intl Traveler <30 Da: No Traveled to Known Affected Are: No History of Present Illness Written by Dennis Malcolm, acting as scribe for Dr. Capps on 12/20/16 at 14:33. This note was transcribed by [email or web address] Lunsford. I, Dr. Greg Capps personally performed the history, physical exam, and medical decision making; and confirmed the accuracy of the information in the transcribed note. Authenticated by Dr. Greg Capps on 12/20/16 at 21:40. 89-year-old female with past mental history of dementia, CVA and left-sided weakness, dementia, HTN, chronic constipation, CKD who presented for right rib pain. The patient is seen with her at bedside improved since most of the history. History and patient is limited secondary to dementia and hard of hearing. The patient currently only complains of left elbow pain and she knows that she fell twice, but cannot say when or how she injured herself. The patient's states that he lives with the patient in the [facility]. He states that the aide for the patient to bed last night and she had no complaints when being put into bed. He states the patient woke up and was complaining of pain in her right ribs. The patient did have an ED visit for fall 2 weeks ago with essentially unremarkable workup at that time. The patient's is not really clear if the patient's had any recurrent falls or injury and is unsure how the patient could've injured her ribs. The patient has been dealing with intermittent episodes of diarrhea and constipation recently. They're unsure what medication she is on. They state that the patient has not done well with rehabilitation in the past and care from her and the staff is available 24 7 at the [facility] and they wish to return there. Review of Systems Except as stated in HPI: all other systems reviewed are Neg Past Family Social History Past Medical History Dementia DVT CVA with residual left-sided weakness Hypertension Chronic kidney disease Chronic constipation Past Surgical History Cholecystectomy Appendectomy Hysterectomy Reported Medications Docusate Sodium 100 Mg Tab 200 Mg PO BID Dexamethasone 4 Mg Tab 4 Mg PO BID Aspirin 81 (Aspirin) 81 Mg Tabdr 81 Mg PO DAILY Mirtazapine 7.5 Mg Tab 7.5 Mg PO HS Aricept (Donepezil HCl) 10 Mg Tablet 10 Mg PO HS Docusate Sodium 100 Mg Cap 100 Mg PO HS PRN Senexon (Sennosides) 8.6 Mg Tab 2 Tab PO HS Calcium (Calcium Carbonate) 600 Mg Tab 600 Mg PO BID Vitamin D3 (Cholecalciferol) 1,000 Unit Tab 1,000 Units PO DAILY Amlodipine (Amlodipine Besylate) 10 Mg Tab 10 Mg PO DAILY Allergies: Coded Allergies: Darvon (Verified Allergy, Unknown, 12/05/16) Active Ordered Medications Current Medications Medications (Trade) Dose Ordered Sig/Bren Route Start Time Stop Time Status Last Admin (Lidoderm 5% Patch.12 Hr) 1 patch DAILY PRN T-DERMAL 12/20/16 05:30 (NS Flush) 2 ml UNSCH PRN IV FLUSH 12/20/16 05:30 (NS Flush) 2 ml BID IV FLUSH 12/20/16 09:00 (Zofran Inj) 4 mg Q6H PRN IVP 12/20/16 05:30 (Tylenol) 650 mg Q6H PRN PO 12/20/16 05:30 (Wallback 5-325 Mg) 1 tab Q4H PRN PO 12/20/16 05:30 (Wallback 7.5-325 Mg) 1 tab Q4H PRN PO 12/20/16 05:30 (Milk Of Magnesia Liq) 30 ml Q12H PRN PO 12/20/16 05:30 (Senokot) 17.2 mg Q12H PRN PO 12/20/16 05:30 (Dulcolax Supp) 10 mg DAILY PRN RECTAL 12/20/16 05:30 (Lactulose Liq) 30 ml DAILY PRN PO 12/20/16 05:30 (Norvasc) 10 mg DAILY PO 12/20/16 09:00 12/20/16 08:40 (Remeron) 7.5 mg HS PO 12/20/16 21:00 Donepezil HCl 10 mg 10 mg HS PO 12/20/16 21:00 (Rocephin Inj/NS Inj) 100 ml @ 200 mls/hr Q24H IV 12/20/16 15:00 Family History Father had dementia Social History [facility] resident Denies any alcohol or tobacco use Physical Exam Vital Signs Vital Signs Date Time Temp Pulse Resp B/P Pulse Ox O2 Delivery O2 Flow Rate FiO2 12/20/16 12:35 97.9 60 18 141/64 96 12/20/16 09:03 96.5 60 20 141/64 95 12/20/16 05:58 66 18 134/63 93 Room Air 12/20/16 04:32 83 16 127/60 94 Room Air 12/20/16 02:38 74 18 128/61 94 Room Air 12/20/16 01:05 78 16 164/71 94 Room Air 12/19/16 23:13 98.6 84 16 170/75 95 Physical Exam GENERAL: Well-developed well-nourished. In no acute distress. Hard of hearing SKIN: Warm and dry. No lesions noted. HEENT: Normocephalic. Pupils equal and round. Mucous membranes pink and moist. CARDIOVASCULAR: Regular rate and rhythm. No murmur appreciated. RESPIRATORY: No accessory muscle use. Clear to auscultation. Breath sounds equal bilaterally. GASTROINTESTINAL: Abdomen soft, non-tender, nondistended. Bowel sounds x4. MUSCULOSKELETAL: No rib or chest wall pain with palpation. Mild left elbow TTP No clubbing or cyanosis. No edema. NEUROLOGICAL: Awake and alert. Left-sided weakness. Normal speech. PSYCHIATRIC: Pleasantly confused mood and affect; insight and judgment poor. Laboratory Laboratory Tests Test 12/20/16 12/20/16 00:45 06:30 White Blood Count 17.8 Red Blood Count 4.34 Hemoglobin 12.1 Hematocrit 36.8 Mean Corpuscular Volume 84.7 Mean Corpuscular Hemoglobin 28.0 Mean Corpuscular Hemoglobin 33.0 Concent Red Cell Distribution Width 14.2 Platelet Count 203 Mean Platelet Volume 8.1 Neutrophils (%) (Auto) 78.4 Lymphocytes (%) (Auto) 14.7 Monocytes (%) (Auto) 5.5 Eosinophils (%) (Auto) 0.7 Basophils (%) (Auto) 0.7 Neutrophils # (Auto) 14.0 Lymphocytes # (Auto) 2.6 Monocytes # (Auto) 1.0 Eosinophils # (Auto) 0.1 Basophils # (Auto) 0.1 CBC Comment DIFF FINAL Differential Comment Sodium Level 142 Potassium Level 3.9 Chloride Level 105 Carbon Dioxide Level 28.4 Anion Gap 9 Blood Urea Nitrogen 49 Creatinine 1.38 Estimat Glomerular Filtration 36 Rate Random Glucose 110 Calcium Level 8.9 Urine Color LIGHT-YELLOW Urine Turbidity HAZY Urine pH 6.5 Urine Specific [place] 1.031 Urine Protein TRACE Urine Glucose (UA) NEG Urine Ketones NEG Urine Occult Blood NEG Urine Nitrite POS Urine Bilirubin NEG Urine Urobilinogen LESS THAN 2.0 Urine Leukocyte Esterase LARGE Urine RBC 3 Urine WBC 35 Urine WBC Clumps MOD Urine Squamous Epithelial 7 Cells Urine Bacteria MOD Microscopic Urinalysis Comment CATH-CULTURE IND Date/Time Procedure Status Source Growth 12/20/16 06:30 Urine Culture Received Urine Catheterized Urine Pending Result Diagram: 12/20/16 0045 12/20/16 0045 Imaging Last Impressions Abdomen/Pelvis CT 12/20/1640 Signed Impressions: Service Date/Time: Tuesday, December 20, 2016 01:56 - CONCLUSION: 1. No evidence of acute abdominal or pelvic process. No masses are identified. 2. Bibasilar atelectasis Mario Wagner MD Ribs X-Ray 12/19/16 0552 Signed Impressions: Service Date/Time: December 23:35 - CONCLUSION: 1. Fracture right eighth ninth and 10th ribs Mario Wagner MD Assessment and Plan Assessment and Plan 89-year-old female with past mental history of dementia, CVA and left-sided weakness, dementia, HTN, chronic constipation, CKD who presented for right rib pain Rib pain and rib fractures: Patient presented for rib pain and was found to have fractures of right eighth and ninth and 10th ribs. The patient has not utilized any pain control overnight. Continue Tylenol and Lidoderm patch as needed for pain. Recent falls: PT recommends SNF. Patient and request to go back to [facility] with [facility]. Patient complains of left elbow pain currently, check x-ray. PT also recommended OT evaluation. marketing program manager consult for assistance with discharge planning. UTI: UA with evidence of possible UTI versus contaminant. WBC 17.8. Afebrile. Empirically cover with IV ceftriaxone and follow-up urine culture. Constipation: Not well controlled on home regimen. Continue to schedule and as needed cathartics and laxatives. Adjust as needed. DVT prophylaxis: SCDs Discussed Condition With Patient with at bedside, Dennis Schulz Dec 20, 2016 14:53 Ema Capps DO Dec 20, 2016 21:40
[2016-12-20] MEDS ORDERED: cefTRIAXone INJ 1,000 MG in SODIUM CHLORIDE 0.9% INJ 100 ML IV SCH (15:00)
[2016-12-20] MEDS ORDERED: ACETAMINOPHEN 500 MG CPLT PO PRN (15:30)
--- NOTE | 2016-12-20 15:36 | HHI.FF ---
Face to Face Verification Diagnosis: (1) Dementia (2) CKD (chronic kidney disease) (3) Hearing difficulty of both ears (4) Contusion of rib on left side (5) Fall (6) Injury of left elbow (7) Leukocytosis Physical Therapy Order: Evaluate and Treat, Improve ambulation, Strength and gait training Occupational Therapy Order: Evaluate and Treat Home Health Nursing Order: Medical education Signs/symptoms of disease process Medication education-adverse effect Wound care and dressing changes (sacral pressure ulcer) Nursing assessment with vital signs Home Health Aide Order: To Assist In: Bathing and personal care, off premise service representative and meal prep I have seen patient Mehnaz Kay on 12/20/16. My clinical findings support the need for the requested home health care services because: Ltd mobility - disease progression Deconditioned w/ increased weakness Med compliance is questionable Limited ability to care for self Impaired cognition/judgement High risk of falls I certify that my clinical findings support that this patient is homebound because: Impaired cognitive ability/safety Unsteady gait/balance Unsafe to leave home unassisted [id number] bed/chair Unable to use public transportation Dennis Malcolm Dec 20, 2016 3:36 pm Charity Solo PA-C Dec 21, 2016 2:08 pm
--- NOTE | 2016-12-20 16:52 | RADRPT ---
EXAM DATE/TIME: 12/20/2016 16:02 [facility] COMPARISON: ELBOW LEFT COMPLETE (4 VWS), December 05, 2016, 23:22. INDICATIONS : Left elbow pain with no known injury MEDICAL HISTORY : None. SURGICAL HISTORY : None. ENCOUNTER: Initial ACUITY: 1 day PAIN SCORE: 5/10 LOCATION: Left entire elbow FINDINGS: Blank lateral film could not be obtained because of the patient's extreme pain. I do not see an obvi ous displaced fracture however the degree of osteopenia makes detection of subtle fracture difficult. CONCLUSION: Limited exam, osteopenia, negative for displaced fracture.. Jan Calderon MD FACR on December 20, 2016 at 16:49 Board Certified Radiologist. This report was verified electronically.
[2016-12-20] MEDS ORDERED: MIRTAZAPINE 15 MG TAB PO SCH (21:00)
[2016-12-20] MEDS ORDERED: DONEPEZIL HCL 5 MG TAB PO SCH (21:00)
[2016-12-20] MEDS: DOCUSATE SODIUM 100 MG CAP PO SCH (21:26)
[2016-12-21 00:52] VITALS: BP_SYST 154; BP_SYST 184; BP_DIAS 68; BP_DIAS 76; PULSE 74; RESP 18; TEMP 99; O2SAT 95
[2016-12-21 02:06] LABS: AUTOMATED NEUTROPHIL # 8.2 TH/MM3 (1.8-7.7); BASOPHIL % 0.4 % (0.0-2.0); EOSINOPHIL # 0.3 TH/MM3 (0-0.4); EOSINOPHIL % 2.3 % (0.0-4.0); HEMATOCRIT 35.8 % (35.0-46.0); HEMO FLAGS DIFF FINAL; LYMPH % 22.8 % (9.0-44.0); LYMPHOCYTE # 2.7 TH/MM3 (1.0-4.8); MEAN CORPUSCULAR HGB CONC 32.6 % (32.0-36.0); MONO % 5.2 % (0.0-8.0); NEUT % 69.3 % (16.0-70.0); PLATELET COUNT 188 TH/MM3 (150-450); RED BLOOD COUNT 4.17 MIL/MM3 (4.00-5.30); RED CELL DISTRIBUTION WIDTH 14.6 % (11.6-17.2); WHITE BLOOD COUNT 11.8 TH/MM3 (4.0-11.0)
[2016-12-21 02:34] LABS: BICARBONATE 25.7 MEQ/L (21.0-32.0); POTASSIUM 4.1 MEQ/L (3.5-5.1)
[2016-12-21 04:23] VITALS: BP 168/73; PULSE 66; RESP 18; TEMP 98.2; O2SAT 92
[2016-12-21] MEDS ORDERED: POLYETHYLENE GLYCOL 17 GM PKG PO SCH (09:00)
[2016-12-21] MEDS ORDERED: ASPIRIN EC 81 MG TABEC PO SCH (09:00)
[2016-12-21 09:08] VITALS: BP 156/67; PULSE 65; RESP 18; TEMP 98.3; O2SAT 92
[2016-12-21 09:12] LABS: AUTOMATED NEUTROPHIL # 7.6 TH/MM3 (1.8-7.7); BASOPHIL # 0.1 TH/MM3 (0-0.2); BASOPHIL % 0.5 % (0.0-2.0); EOSINOPHIL # 0.3 TH/MM3 (0-0.4); EOSINOPHIL % 2.4 % (0.0-4.0); HEMATOCRIT 34.6 % (35.0-46.0); HEMO FLAGS DIFF FINAL; LYMPH % 19.5 % (9.0-44.0); MEAN CORPUSCULAR HEMOGLOBIN 28.1 PG (27.0-34.0); NEUT % 72.6 % (16.0-70.0); PLATELET COUNT 187 TH/MM3 (150-450); RED BLOOD COUNT 4.07 MIL/MM3 (4.00-5.30); RED CELL DISTRIBUTION WIDTH 14.5 % (11.6-17.2); WHITE BLOOD COUNT 10.5 TH/MM3 (4.0-11.0)
--- NOTE | 2016-12-21 09:14 | HHI.PR ---
Subjective Remarks Follow up for UTI, rib fractures, falls. The patient is extremely hard of hearing with advanced dementia therefore history is limited. She mostly smiles and nods to all questions. She denies any pain. No acute events overnight. Objective Vitals Vital Signs Date Time Temp Pulse Resp B/P Pulse Ox O2 Delivery O2 Flow Rate FiO2 12/21/16 04:23 98.2 66 18 168/73 92 12/21/16 00:52 99.0 74 18 154/68 95 12/20/16 20:17 98.3 74 18 142/66 95 12/20/16 16:35 97.9 60 18 132/60 96 12/20/16 12:35 97.9 60 18 141/64 96 I/O 12/20/16 12/20/16 12/20/16 12/21/16 12/21/16 12/21/16 06:59 14:59 22:59 06:59 14:59 22:59 Intake Total 1100 ml Balance 1100 ml Intake Oral 400 ml IV Total 700 ml # Voids 2 Result Diagram: 12/21/16 0122 12/21/16 0122 Imaging Last Impressions Abdomen/Pelvis CT 12/20/16 0041 Signed Impressions: Service Date/Time: Tuesday, December 20, 2016 01:56 - CONCLUSION: 1. No evidence of acute abdominal or pelvic process. No masses are identified. 2. Bibasilar atelectasis Mario Wagner MD Elbow X-Ray 12/20/16 0000 Signed Impressions: Service Date/Time: Tuesday, December 20, 2016 16:02 - CONCLUSION: Limited exam, osteopenia, negative for displaced fracture.. Jan Calderon MD FACR Ribs X-Ray 12/19/16 7188 Signed Impressions: Service Date/Time: December 23:35 - CONCLUSION: 1. Fracture right eighth ninth and 10th ribs Mario Wagner MD Objective Remarks GENERAL: Thin frail elderly female patient in [facility]. SKIN: Warm and dry. No rash. HEENT: Normocephalic. Atraumatic.Pupils equal and round. Mucous membranes pink and moist. NECK: Supple. Trachea midline. CARDIOVASCULAR: Regular rate and rhythm. S1, S2 noted. 4/6 systolic murmur. RESPIRATORY: No accessory muscle use. Clear to auscultation. Breath sounds equal bilaterally. GASTROINTESTINAL: Abdomen soft, non-tender, nondistended. Normoactive bowel sounds x4. MUSCULOSKELETAL: No obvious deformities. Extremities without clubbing, cyanosis , or edema. NEUROLOGICAL: Awake and alert. Left sided hemiparesis. Normal speech. PSYCHIATRIC: Pleasantly confused mood; insight and judgment poor. Medications and IVs Current Medications Medications (Trade) Dose Ordered Sig/Bren Route Start Time Stop Time Status Last Admin (Lidoderm 5% Patch.12 Hr) 1 patch DAILY PRN T-DERMAL 12/20/16 05:30 (NS Flush) 2 ml UNSCH PRN IV FLUSH 12/20/16 05:30 (NS Flush) 2 ml BID IV FLUSH 12/20/16 09:00 12/20/16 21:27 (Zofran Inj) 4 mg Q6H PRN IVP 12/20/16 05:30 (Milk Of Magnesia Liq) 30 ml Q12H PRN PO 12/20/16 05:30 (Senokot) 17.2 mg Q12H PRN PO 12/20/16 05:30 (Dulcolax Supp) 10 mg DAILY PRN RECTAL 12/20/16 05:30 (Lactulose Liq) 30 ml DAILY PRN PO 12/20/16 05:30 (Norvasc) 10 mg DAILY PO 12/20/16 09:00 12/20/16 08:40 (Remeron) 7.5 mg HS PO 12/20/16 21:00 12/20/16 21:26 Donepezil HCl 10 mg 10 mg HS PO 12/20/16 21:00 12/20/16 21:26 (Rocephin Inj/NS Inj) 100 ml @ 200 mls/hr Q24H IV 12/20/16 15:00 12/20/16 15:27 (Colace) 100 mg BID PO 12/20/16 21:00 12/20/16 21:26 (Miralax) 17 gm DAILY PO 12/21/16 09:00 (Ecotrin Ec) 81 mg DAILY PO 12/21/16 09:00 (Tylenol) 1,000 mg Q6H PRN PO 12/20/16 15:30 A/P Assessment and Plan 89-year-old female with past mental history of dementia, CVA and left-sided weakness, dementia, HTN, chronic constipation, CKD who presented for right rib pain Rib pain with Rib Fractures: Patient presented for rib pain and was found to have fractures of right 8th, 9th, 10th ribs. The patient has not utilized any pain control overnight. Continue Tylenol and Lidoderm patch as needed for pain. Incentive spirometry. Recent falls: PT recommends SNF. Patient and request to go back to [facility] with [facility]. Patient complains of left elbow pain currently, xray unremarkable. PT also recommended OT evaluation. manager physical consult for assistance with discharge planning. UTI: UA with evidence of possible UTI versus contaminant. WBC 17.8. Afebrile. Empirically cover with IV ceftriaxone and follow-up urine culture. Leukocytosis improving, now 11.8K. OMAR: suspect secondary to dehydration. Cr 1.38, given IVF, improved to Cr 1.04. Avoid nephrotoxins. Constipation: Not well controlled on home regimen. Continue scheduled and prn cathartics and laxatives. Monitor for BM. Sacral Pressure Ulcer: present on admission. Consult wound care. DVT prophylaxis: SCDs Discharge Planning 0910hrs: Likely discharge back to [facility] later today. Await wound care eval, OT eval. 1400hrs: Patient's family at bedside, requesting to take the patient back to [facility]. Family adamantly does not want her going to rehab. Will discharge back to [facility] with [facility]. Discharge patient to [facility] with [facility] Condition on discharge: Improved Regular Diet as tolerated Ad Christina activity Rx written: Cefuroxime 500mg bid x3days Follow-up with primary care physician Dr. Valencia in 2-3 days Charity Solo PA-C Dec 21, 2016 9:14 am
[2016-12-21] MEDS: SODIUM CHLORIDE 0.9% FLUSH 10 ML FLUSH IV FLUSH SCH (10:49)
[2016-12-21] MEDS: DOCUSATE SODIUM 100 MG CAP PO SCH (10:49)
[2016-12-21 11:01] LABS: ALT (GPT) 16 U/L (10-53); ANION GAP 8 MEQ/L (5-15); AST (GOT) 13 U/L (15-37); BICARBONATE 24.6 MEQ/L (21.0-32.0); BLOOD UREA NITROGEN 35 MG/DL (7-18); CHLORIDE 111 MEQ/L (98-107); GLOMERULAR FILTRATION RATE 53 ML/MIN (>89); POTASSIUM 4.1 MEQ/L (3.5-5.1); SODIUM (NA) 144 MEQ/L (136-145)
[2016-12-21 11:03] LABS: ALKALINE PHOSPHATASE 53 U/L (45-117); TOTAL BILIRUBIN ADULT 0.4 MG/DL (0.2-1.0)
[2016-12-21 12:18] VITALS: BP 154/68; PULSE 65; RESP 18; TEMP 98.5; O2SAT 93
--- NOTE | 2016-12-21 13:23 | RADRPT ---
EXAM DATE/TIME: 12/21/2016 13:01 [facility] COMPARISON: CT BRAIN W/O CONTRAST, December 05, 2016, 23:24. INDICATIONS : Left arm weakness. RADIATION DOSE: 29.95 CTDIvol (mGy) MEDICAL HISTORY : Hypertension. Dementia. SURGICAL HISTORY : Tonsillectomy. ENCOUNTER: Initial ACUITY: 1 day PAIN SCALE: Non-responsive LOCATION: Bilateral head TECHNIQUE: Multiple contiguous axial images were obtained of the head. Using automated exposure control and adj ustment of the mA and/or kV according to patient size, radiation dose was kept as low as reasonably a chievable to obtain optimal diagnostic quality images. DICOM format image data is available electro nically for review and comparison. FINDINGS: CEREBRUM: Atrophy again noted. No evidence of midline shift, mass lesion, hemorrhage or acute infarction. No extra-axial fluid collections are seen. POSTERIOR FOSSA: The cerebellum and brainstem are intact. The 4th ventricle is midline. The cerebellopontine angle i s unremarkable. EXTRACRANIAL: The visualized portion of the orbits is intact. SKULL: The calvaria is intact. No evidence of skull fracture. CONCLUSION: No acute intracranial abnormality demonstrated. Atrophy again seen. Tremayne Fletcher MD on December 21, 2016 at 13:21 Board Certified Radiologist. This report was verified electronically.
[2016-12-21] MEDS ORDERED: CEFU1TAB20 PO (14:00)
== END 2016-12-21 15:23 | disposition home or self-care (01) ==
LOC: NEPE 23:08 → NEDA 12-20 05:19 → NEPGCP 12-20 06:50
PROVIDERS: ADMIT Hospitalist; ATTEND Hospitalist
DX: S22.41XA Multiple fractures of ribs, right side, initial encounter for closed fracture (principal); N17.9 Acute kidney failure, unspecified; N39.0 Urinary tract infection, site not specified; K59.00 Constipation, unspecified; M25.522 Pain in left elbow; R19.7 Diarrhea, unspecified; I69.354 Hemiplegia and hemiparesis following cerebral infarction affecting left non-dominant side; I12.9 Hypertensive chronic kidney disease with stage 1 through stage 4 chronic kidney disease, or unspecified chronic kidney disease; N18.9 Chronic kidney disease, unspecified; E78.00 Pure hypercholesterolemia, unspecified; J98.11 Atelectasis; M85.80 Other specified disorders of bone density and structure, unspecified site; G30.9 Alzheimer's disease, unspecified; F02.80 Dementia in other diseases classified elsewhere, unspecified severity, without behavioral disturbance, psychotic disturbance, mood disturbance, and anxiety; L89.159 Pressure ulcer of sacral region, unspecified stage; D18.09 Hemangioma of other sites; H91.90 Unspecified hearing loss, unspecified ear; Z79.899 Other long term (current) drug therapy; Z79.82 Long term (current) use of aspirin; Z85.828 Personal history of other malignant neoplasm of skin; W19.XXXA Unspecified fall, initial encounter
CPT/HCPCS: 70450; 71101; 73080; 74177; 80048; 80053; 81001; 85025; 87077; 87086; 87186; 96365; 96366; 97162; 97167; 99285; G0378; G8987; G8988; J0696; J7030; Q9967